=== PATIENT | female | born 1960 | race Two or more races ===

== ENCOUNTER 2017-08-24 11:24 | Outpatient (CLI) | payer OTHER | END 2017-08-24 11:33 | disposition home or self-care (01) | LOC: SONOGRAMA 11:24 | DX: N63.21 Unspecified lump in the left breast, upper outer quadrant (principal); N60.11 Diffuse cystic mastopathy of right breast; N60.12 Diffuse cystic mastopathy of left breast ==

== ENCOUNTER 2017-10-05 06:10 | Day surgery (SDC) | payer OTHER ==
[~2017-10-05 06:10] MED LIST: CLONAZEPAM0.5 MG PO; PRISTIQ ER50 MG PO; PROBIOTIC1 EAC4 PO; RED YEAST RICE600 M1 PO; VP-VITE RX TAB1 EACH PO; WELLBUTRIN SR100 MG PO
== END 2017-10-05 12:20 | disposition home or self-care (01) ==
LOC: EDBD → CIR.AMB 06:10
DX: D24.2 Benign neoplasm of left breast (principal)